=== PATIENT | female | born 1945 | race Caucasian/White ===

== ENCOUNTER 2020-02-26 14:29 | Emergency (ER) | payer MEDICARE ==
[~2020-02-26] VITALS: Ht 160 cm; Wt 80.0 kg
[~2020-02-26 14:29] MED LIST: ALBU8.5H8 INH; ASPI-1071 PO; BIOT25008 PO; CALC-1215 PO; CHLO25TA2 PO; CINN500C15 PO; FLAX1CAP4 PO; GABA-532 PO; ISOS30TA6 PO; METO25TA6 PO; OMEP-50 PO; POTA8TAB8 PO; PRAV10TA39 PO
[2020-02-26 15:17] LABS: BASOPHILS % (AUTO) 0.3 % (0-1); EOSINOPHILS # (AUTO) 0.1 X10'3 (0-0.9); EOSINOPHILS % (AUTO) 0.9 % (0-6); HEMATOCRIT 35.3 % (35.0-45.0); HEMOGLOBIN 11.7 g/dl (12.0-16.0); LYMPHOCYTES # (AUTO) 1.3 X10'3 (1.1-4.8); LYMPHOCYTES % (AUTO) 19.9 % (21-51); MEAN CORPUSCULAR HEMOGLOBIN 28.9 PG (27.0-31.0); MEAN CORPUSCULAR HGB CONC 33.1 g/dL (33.0-36.5); MEAN CORPUSCULAR VOLUME 87.4 FL (78-98); MONOCYTES # (AUTO) 1.1 X10'3 (0-0.9); MONOCYTES % (AUTO) 16.2 % (2-12); NEUTROPHILS # (AUTO) 4.1 X10'3 (1.8-7.7); NEUTROPHILS % (AUTO) 62.7 % (42-75); PLATELET COUNT 146 X10'3 (140-440); RED BLOOD COUNT 4.04 X10'6 (4.20-5.60); RED CELL DISTRIBUTION WIDTH 14.2 % (11.5-14.5); WHITE BLOOD COUNT 6.5 X10'3 (4.5-11.0)
[2020-02-26] MEDS ORDERED: LORazepam 2 mg/ml vial IV ONE (15:20)
[2020-02-26] MEDS ORDERED: normal saline 1000ML IV soln IVB ONE (15:20)
[2020-02-26] MEDS ORDERED: famotidine/PF 10 mg/ml inj IV ONE (15:20)
[2020-02-26] MEDS ORDERED: morphine 4 MG/ML inj SYRINge IV PRN (15:20)
[2020-02-26] MEDS ORDERED: ondansetron/PF 4mg/2ml inj IV ONE (15:20)
[2020-02-26] MEDS ORDERED: ketorolac trometh. 30mg/ml inj. IV ONE (15:20)
[2020-02-26 15:42] LABS: ALANINE AMINOTRANSFERASE 22 U/L (12-78); ALBUMIN/GLOBULIN RATIO 1.1 (1.1-1.5); ALKALINE PHOSPHATASE 70 IU/L (46-116); ANION GAP 6 (8-16); ASPARTATE AMINO TRANSFERASE 15 U/L (10-37); BILIRUBIN,TOTAL 0.5 MG/DL (0.1-1.0); BLOOD UREA NITROGEN 18 MG/DL (7-18); BUN/CREATININE RATIO 18.2 (6.6-38.0); CALCIUM 9.5 MG/DL (8.5-10.1); CHLORIDE 103 MMOL/L (99-107); CREATININE 0.99 MG/DL (0.40-0.90); GLUCOSE 96 MG/DL (70-104); POTASSIUM 3.6 MMOL/L (3.5-5.1); SODIUM 142 MMOL/L (135-145); TOTAL CARBON DIOXIDE 32.8 MMOL/L (24-32); TOTAL PROTEIN 7.5 G/DL (6.4-8.2); eGFR 55 ML/MIN
[2020-02-26 15:46] LABS: PLATELET ESTIMATE NORMAL; TOTAL CELLS COUNTED 100
[2020-02-26] MEDS ORDERED: CYCL-1 PO (16:01)
[2020-02-26 16:59] VITALS: BP 158/69
== END 2020-02-26 17:05 | disposition home or self-care (01) ==
LOC: ER 14:30
DX: M25.511 Pain in right shoulder (principal); Z95.1 Presence of aortocoronary bypass graft; Z88.5 Allergy status to narcotic agent; Z88.0 Allergy status to penicillin; Z88.2 Allergy status to sulfonamides; Z79.82 Long term (current) use of aspirin; Z79.899 Other long term (current) drug therapy
CPT/HCPCS: 36415; 71045; 80053; 83880; 84484; 85007; 85025; 85379; 93005; 96361; 96374; 96375; 99285; J1885; J2405; J3490; J7030